=== PATIENT | female | born 1965 | race Caucasian/White ===

== ENCOUNTER 2017-02-06 16:26 | Emergency (ER) | payer OTHER ==
--- NOTE | ~2017-02-06 | CR126 ---
[facility] Service of [facility] RADIOLOGY TEXT RESULTS PATIENT: RONA DOSS LOCATION: SED : 63 UNIT #: [id number] AGE: [address]: Gloria Escobar SEX: F ORDER DR: [id number] [address] [address] [id number] E MR#: [id number] Acc #: [id number] NAME: RONA DOSS : 1965 SEX: F STUDY DATE/TIME: 02/06/2017 16:09 UNIT: SED ROOM: STUDY DESCRIPTION: CR Foot Complete Min 3 View Lt Attending Physician: Gloria Escobar Pa-C Ordering Physician: Gloria Escobar Pa-C Primary Care Physician: Kathia Burnham A.P.R.N. MEDICAL IMAGING REPORT This report is preliminary unless electronic signature is present. EXAM Left foot 02/06/2017 INDICATIONS 51-year-old female with pain in the fourth and fifth toes that began 2 nights ago around 11 o'clock when she stubbed a toe on the leg of a chair, bruising from the third through the fifth toes. TECHNIQUE 3 views left foot. No comparisons. FINDINGS The examination is abnormal. There is an oblique complete nondisplaced stellate fracture through the mid aspect of the proximal phalanx fifth digit, there is no intraarticular extension but there is soft tissue swelling. No additional fracture identified. IMPRESSION 1. Stellate nondisplaced complete fracture through the mid aspect of the proximal phalanx fifth digit. Soft tissue swelling but no interarticular extension. Dictated by... Sam Ponce M.D. THIS IS AN ELECTRONICALLY VERIFIED REPORT Sam Ponce M.D. at 02/06/2017 8:11 PM OSIRIS/herlinda TD: 02/06/2017 18:22 JOB #: [id number] [facility] of [facility] RADIOLOGY TEXT RESULTS PATIENT: RONA DOSS LOCATION: SED : 63 UNIT #: [id number] AGE: [address]: Gloria Escobar SEX: F ORDER DR: MEDICAL IMAGING REPORT Page 1 of 1
[~2017-02-06 16:26] MED LIST: ACETAMINOOPHEN-1 TAB PO; AMOXICILLIN500 M1; AMOXICILLIN875 MG PO; CELEXA PO; CLEOCIN HCL300 M1 PO; DESYREL100 MG PO; FLEXERIL10 MG PO; GABAPENTIN300 MG PO; HYDROCODON-ACE1 EAC5 PO; HYDROCODONE/APA1 T16 PO; LIORESAL10 MG PO; MACROBID100 MG PO; MEDROL DOSEPAK4 MG PO; NO MEDICATIONS; NORVASC PO; PREDNISONE PO; PRILOSEC PO; ROBITUSSIN A-C S5 ML PO; SARAFEM20 MG PO; TAMIFLU75 M1 PO; TRAZODONE PO; ULTRAM PO; VICODIN 5/1 TAB 5/50 PO; VICODIN 5/500 T1 TAB PO; VOLTAREN50 MG PO
== END 2017-02-06 17:25 | disposition home or self-care (01) ==
LOC: SED 16:26
DX: S92.525A Nondisplaced fracture of middle phalanx of left lesser toe(s), initial encounter for closed fracture (principal); F17.210 Nicotine dependence, cigarettes, uncomplicated; W22.8XXA Striking against or struck by other objects, initial encounter; Y92.009 Unspecified place in unspecified non-institutional (private) residence as the place of occurrence of the external cause
CPT/HCPCS: 29515; 29540; 73630; 99283

== ENCOUNTER → 2017-06-13 | Outpatient (CLI) | payer OTHER ==
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
== END | disposition home or self-care (01) ==
LOC: SRAD 11:25
DX: M50.30 Other cervical disc degeneration, unspecified cervical region (principal); M50.322 Other cervical disc degeneration at C5-C6 level; M51.36 Other intervertebral disc degeneration, lumbar region; I70.8 Atherosclerosis of other arteries
CPT/HCPCS: 72040; 72120